=== PATIENT | female | born 1950 | race Caucasian/White ===

== ENCOUNTER 2016-06-07 08:42 | Inpatient (IN) | payer BC, MEDICARE ==
[2016-05-25 14:01] LABS: BASOPHILS 0.9 %; BASOPHILS ABSOLUTE 0.07 10/3/uL (0.0-0.16); EOSINOPHILS 1.8 %; EOSINOPHILS ABSOLUTE 0.13 10/3/uL (0.0-0.53); HEMATOCRIT 38.2 % (36.0-48.0); HEMOGLOBIN 13.4 g/dL (12.0-16.0); IMMATURE GRANULOCYTES 0.3 %; IMMATURE GRANULOCYTES ABSOLUTE 0.02 10/3/uL (0.0-0.11); LYMPHOCYTES 28.7 %; LYMPHOCYTES ABSOLUTE 2.12 10/3/uL (0.67-4.30); MANUAL DIFF NO %; MEAN CORPUS HGB CONC 35.1 g/dL (32.0-36.0); MEAN CORPUSCULAR HEMOGLOB 32.2 pg (26.0-34.0); MEAN CORPUSCULAR VOLUME 91.8 fL (80-100); MEAN PLATELET VOLUME 9.9 fL (9.2-13.0); MONOCYTES 8.5 %; MONOCYTES ABSOLUTE 0.63 10/3/uL (0.21-1.20); NEUTROPHILS 59.8 %; NEUTROPHILS ABSOLUTE 4.41 10/3/uL (2.02-8.40); PLATELET COUNT 228 10/3/uL (150-400); RBC DISTRIBUTION WIDTH 12.3 % (12.0-16.0); RED CELL COUNT 4.16 10/6/uL (4.0-5.6); WHITE BLOOD CELLS 7.4 10/3/uL (4.5-10.5)
[2016-05-25 14:13] LABS: PROTIME (NOT ORD) 12.9 SEC (12.0-14.5)
[2016-05-25 14:22] LABS: ALBUMIN 3.9 G/DL (3.5-5.0); CALCIUM, SERUM 9.6 MG/DL (8.5-10.4); CHLORIDE, SERUM 99 MMOL/L (96-112); CREATININE 1.07 MG/DL (0.55-1.02); GFR AFRICAN AMERICAN 63 ML/MIN (>=60); GFR NON AFRICAN AMERICAN 54 ML/MIN (>=60); POTASSIUM, SERUM 3.4 MMOL/L (3.5-5.3); SGOT(AST) 45 U/L (5-40); SGPT(ALT) 58 U/L (5-65); SODIUM, SERUM 141 MMOL/L (135-148); TOTAL PROTEIN 7.4 G/DL (6.0-8.5)
[2016-05-25 14:27] LABS: A/G RATIO 1.1 (0.7-1.9); ALKALINE PHOSPHATASE 88 U/L (45-117); BUN (BLOOD UREA NITROGEN) 11 MG/DL (6-23); CO2 (CARBON DIOXIDE) 32 MMOL/L (24-34); GLOBULIN 3.5 G/DL (2.5-4.1); GLUCOSE, SERUM 129 MG/DL (60-99); TOTAL BILIRUBIN 1.2 MG/DL (0-1.2)
[2016-05-25 15:29] LABS: ASCORBIC ACID (UR NOT ORDER) NEG (NEG); BILIRUBIN, URINE NEGATIVE (NEG); KETONE, URINE NEGATIVE (NEG); LEUKOCYTE ESTERASE(NOT OR NEG (NEG); WBC (NOT ORDERED) (RFLEX) < 1 (0-5)
--- NOTE | ~2016-06-07 | DS ---
Discharge Summary [facility] [address] [facility] [place]. [address] NAME: NIVIA CONNELL : 50 STATUS : DIS IN PAT#: [id number] AGE: 65 ADM/REG DATE : 06/07/16 MR#: [id number] REPORT SERV DATE: 06/18/16 DICTATED BY: ALLYSON CORTES DATE: 06/17/16 REPORT STATUS : Draft TRANSCRIBED BY: MODMahesh DATE: 06/17/16 Data Collection from hospitalization DISCHARGE DIAGNOSES: 1. Severe right hip degenerative joint disease. 2. Hypertension. 3. Diabetes. 4. Osteoarthritis. 5. Heart disease. 6. Hypercholesterolemia. 7. Former smoker. CONSULTATIONS: None. PROCEDURES PERFORMED: Uncemented total hip arthroplasty, Tri-Lock, 06/07/2016. PATHOLOGY: Bone and soft tissue, right hip joint arthroplasty - avascular necrosis. MEDICATIONS: Aspirin 81 mg daily, Zyrtec 10 mg daily, Benadryl 25 mg at bedtime as needed, Cardura 4 mg twice a day, Nexium 40 mg at bedtime, hydrochlorothiazide 25 mg daily, Glucophage 500 mg daily, Lopressor 50 mg twice a day, Singulair 10 mg daily, multivitamins one tablet daily, Lovaza 1000 mg daily, Roxicodone 5 mg every four hours as needed, Crestor 20 mg at bedtime, Ultram 50 mg every six hours as needed, and Coumadin as instructed. CONDITION AT DISCHARGE: Stable. DISPOSITION: The patient was discharged home on an 1800-calorie diabetic diet with activities as instructed. She would follow up with Andrew Rebolledo on 06/21/2016. She would follow up with Dr. Issac Cortes on 07/18/2016. She would follow up at [facility] for physical therapy on 06/13/2016, and she was to follow up at [facility] every Monday for walk-ins for Coumadin lab work. HOSPITAL COURSE: This is a 65-year-old female who has severe right hip degenerative joint disease. Treatment options were discussed and it was elected to proceed with surgical intervention. She was admitted to the hospital at this time for further evaluation and treatment. Upon admission, she was taken to the operating room where she underwent the above-mentioned procedure. She tolerated this well, and there were no complications. On postop day #1, she was evaluated by Occupational and Physical Therapy. She was comfortable. She had normal distal pulses. Her dressings were clean, dry, and intact. Over the next couple of days, she continued to progress. She was up sitting in a bedside chair. DONALD hose were in place. Discharge planning was performed. On 06/10/2016, she was ambulating in the halls. Discharge instructions were given. Due to her improved and stable condition, she was discharged home with the above-stated instructions. Information collected by: Adriana Covarrubias Discharge Summary [id number] [place]. [address] NAME: NIVIA CONNELL : 50 STATUS : DIS IN PAT#: [id number] AGE: 65 ADM/REG DATE : 06/07/16 MR#: [id number] REPORT SERV DATE: 06/18/16 DICTATED BY: ALLYSON CORTES DATE: 06/17/16 REPORT STATUS : Draft TRANSCRIBED BY: ALICIA DATE: 06/17/16 I submit the above information as my discharge summary. SUSSY/ALICIA Issac Cortes M.D. / [id number] CC: Issac Cortes M.D. [facility]
--- NOTE | ~2016-06-07 | OP ---
Record Of Operation [facility] [address] [place]. [address] NAME: NIVIA CONNELL : 50 STATUS : ADM IN PAT#: [id number] AGE: 65 ADM/REG DATE : 06/07/16 MR#: [id number] REPORT SERV DATE: 06/09/16 DICTATED BY: ALLYSON CORTES DATE: 06/09/16 REPORT STATUS : Draft TRANSCRIBED BY: MODL DATE: 06/09/16 DATE OF PROCEDURE: 06/07/2016 PREOPERATIVE DIAGNOSIS: Sever right hip degenerative joint disease. POSTOPERATIVE DIAGNOSIS: Severe right hip degenerative joint disease. PROCEDURE: Uncemented total hip arthroplasty, Tri-Lock. SIDE: Right. TANKAGE GRINDER OPERATOR: ANESTHESIA: See chart SIZE: See chart ESTIMATED BLOOD LOSS: About 100 mL INDICATIONS FOR SURGERY: PROCEDURE: The patient was taken to the operating room and placed supine on the table without incident. Anesthetic was induced per the anesthesiologist. A Rausch catheter was placed by the nurse in the standard sterile technique. The correct side for the procedure was identified by preoperative markings and matched with the consent form. All personnel in the room were in agreement regarding the procedure, patient, and side. The patient was then carefully positioned and carefully padded and prepped and draped in the normal sterile fashion. The patient received prophylactic preoperative antibiotics at the appropriate time. The preoperative x-ray was brought up on the monitor. Again, this was reviewed with the staff in the room. According with the preoperative plan, and angled, an anterolateral incision was made centered over the trochanter extending from proximal posterior to distal anterior. Electrocautery was used to maintain meticulous hemostasis. The IT band was split in line with its fibers. A Charnley retractor was placed over saline moistened laps. A standard anterolateral approach to the hip was carried out dissecting in line with the vastus medialis fibers lifting the inferior 20% of the vastus medialis, proximally the interior 20% of the gluteus medius and gluteus minimus tendons off the anterior capsule. Periosteal elevator was used to elevate soft tissue gently directly off the proximal anterior femoral bone. Appropriate retractors were carefully placed. Complete anterior capsulectomy was performed. The hip was then carefully dislocated with a combination of traction maneuver by the litigation legal assistant and scooping the ball out of the socket with a Hohmann. A femoral neck osteotomy was marked according to what had been preoperatively planned with a broach as a template. The distance for the femoral neck osteotomy was measured with a ruler. A femoral neck osteotomy was made with an oscillating saw under appropriate retraction. Meticulous hemostasis was again obtained. The leg was then brought up out of the anterior bag and Record Of Operation [facility] [address] [place]. [address] NAME: NIVIA CONNELL : 50 STATUS : ADM IN PAT#: [id number] AGE: 65 ADM/REG DATE : 06/07/16 MR#: [id number] REPORT SERV DATE: 06/09/16 DICTATED BY: ALLYSON CORTES DATE: 06/09/16 REPORT STATUS : Draft TRANSCRIBED BY: ALICIA DATE: 06/09/16 positioned with the lower extremity in external rotation and slight flexion. Acetabular retractors were placed carefully palpating to be sure that they were directly on the bone. The acetabular labrum was excised with electrocautery and rongeur. Pulvinar fat was removed with a large curette and rongeur and again meticulous hemostasis was obtained. Sequential reamers were used in the acetabulum to 1 mm. less than the final size which was chosen. This was felt to give excellent interference fit. The acetabular fossa was then copiously irrigated with pulsatile lavage and actual acetabular component was placed and impacted and checked to make sure it was down snug. The overall alignment was checked. The acetabular data entry assistant was then removed. Screws were placed in the standard fashion. A drill, depth gauge and self tapping screw placement taking care not to plunge as the drill holes were carefully placed. A trial liner was then placed and attention directed back to the proximal femur. The leg was placed back into the anterior bag. The proximal femur was prepared using a box chisel following by a T-handled reamer to determine the intramedullary alignment. This was followed by sequential broaches up to the final broach. Once it was seated in the appropriate position, a Calcar reamer was used to plane the proximal femur. Trial reduction was then done with a trial prosthetic ball and neck. A straight edge was used to compare the tip of the trochanter to center of the ball relationship to what had been noted on the preoperative x-ray. Careful reduction was then done of the total hip. Palpation was done to ascertain and compare leg lengths by palpating the nonoperative leg and also by checking soft tissue tension. The stability of the hip was checked in full extension with full external rotation and in full flexion with adduction, flexion and internal rotation. The hip was then redislocated with a bone hook. The femoral trial and femoral broach were removed. The acetabulum was then prepared under appropriate retraction by removing the trial liner. A central hole eliminator was placed and tightened. The shell was irrigated out. The actual insert was placed and impacted and then checked to be sure it was down snug with a joker. The leg was again positioned in the bag. The proximal femur exposed, irrigated and the actual thermal prosthesis was taken from the pharmacy sales representative and impacted. Once it was down, the trunnion was cleansed with a wet and dry lap and the prosthetic thermal head was placed and impacted and checked to be sure it was down snug. The acetabulum was irrigated and reduction was obtained. Again, we checked soft tissue tension, leg length and stability as described above. The hip was closed in a layered fashion with a 5 mm. Mersilene tape placed through a single drill hole in the proximal anterior/superior trochanter reattaching the gluteus medius and minimus fibers. The vastus lateralis, gluteus medius, and gluteus minimus were then closed in a sleeve. Drain was placed between the vastus and the IT band exiting distally anteriorly. The IT band was closed. Subcutaneous closure and skin closure were then obtained. A sterile dressing was applied. The patient was carefully positioned into a supine position and then awakened. The patient was then carefully transferred to the stretcher to be returned to the postoperative care unit without incident. COMPLICATION: None. SPECIMENS: Right femoral head. Record Of Operation [place] [id number] [facility] [place]. [address] NAME: NIVIA CONNELL : 50 STATUS : ADM IN [facility]#: [id number] AGE: 65 ADM/REG DATE : 06/07/16 MR#: [id number] REPORT SERV DATE: 06/09/16 DICTATED BY: ALLYSON CORTES DATE: 06/09/16 REPORT STATUS : Draft TRANSCRIBED BY: ALICIA DATE: 06/09/16 WTB/ALICIA Issac Cortes M.D. / [id number] CC: Bonita Bolton MD
[~2016-06-07 08:42] MED LIST: ASAB PO; BEN25 PO; CARDU4 PO; CRESTOR20 MG PO; EFFIENT10 PO; GLUCPH PO; HYDROCHLOROT25 MG PO; LOP50 PO; LOVAZA1 GM PO; MULTIPLE VIT PO; NEXIUM40 PO; SINGULAIR1 PO; ULTRAM50 PO; ZYRTEC ALLGY10 MG PO
[2016-06-08 04:15] LABS: HEMOGLOBIN 11.4 g/dL (12.0-16.0)
[2016-06-08 04:20] LABS: HEMATOCRIT 32.4 % (36.0-48.0)
[2016-06-08 04:21] LABS: INTERNATIONAL NORMAL RATI 1.1 UNITS (-); PROTIME (NOT ORD) 14.4 SEC (12.0-14.5)
[2016-06-08 04:31] LABS: CALCIUM, SERUM 9.1 MG/DL (8.5-10.4); CHLORIDE, SERUM 104 MMOL/L (96-112); CO2 (CARBON DIOXIDE) 31 MMOL/L (24-34); CREATININE 0.74 MG/DL (0.55-1.02); GFR AFRICAN AMERICAN 99 ML/MIN (>=60); GFR NON AFRICAN AMERICAN 85 ML/MIN (>=60); GLUCOSE, SERUM 131 MG/DL (60-99); POTASSIUM, SERUM 3.4 MMOL/L (3.5-5.3); SODIUM, SERUM 142 MMOL/L (135-148)
[2016-06-08 04:34] LABS: BUN (BLOOD UREA NITROGEN) 7 MG/DL (6-23)
[2016-06-09 06:24] LABS: INTERNATIONAL NORMAL RATI 2.8 UNITS (-); PROTIME (NOT ORD) 29.1 SEC (12.0-14.5)
[2016-06-09 06:55] LABS: HEMATOCRIT 30.7 % (36.0-48.0); HEMOGLOBIN 10.5 g/dL (12.0-16.0)
[2016-06-10 06:09] LABS: HEMATOCRIT 29.6 % (36.0-48.0); HEMOGLOBIN 10.4 g/dL (12.0-16.0)
[2016-06-10 06:19] LABS: INTERNATIONAL NORMAL RATI 2.2 UNITS (-)
[2016-06-10 06:20] LABS: PROTIME (NOT ORD) 24.1 SEC (12.0-14.5)
[2016-06-10] MEDS ORDERED: OXYCOD PO (10:59)
[2016-06-10] MEDS ORDERED: C2 (10:59)
== END 2016-06-10 12:43 | disposition home or self-care (01) | DRG 470 ==
LOC: SDC/OF 08:42 → PACU 13:15 → 3JRC 16:44
PROVIDERS: Specialist
PROC: 0SR902A Replacement of Right Hip Joint with Metal on Polyethylene Synthetic Substitute, Uncemented, Open Approach (ICD-10-PCS; principal; 2016-06-07 10:30)
DX: M16.11 Unilateral primary osteoarthritis, right hip (principal); E66.9 Obesity, unspecified; I10 Essential (primary) hypertension; Z68.33 Body mass index [BMI] 33.0-33.9, adult; E11.9 Type 2 diabetes mellitus without complications; K21.9 Gastro-esophageal reflux disease without esophagitis; E78.5 Hyperlipidemia, unspecified; Z88.2 Allergy status to sulfonamides; Z88.8 Allergy status to other drugs, medicaments and biological substances; Z91.040 Latex allergy status; Z79.82 Long term (current) use of aspirin; Z79.899 Other long term (current) drug therapy; Z79.84 Long term (current) use of oral hypoglycemic drugs; I25.10 Atherosclerotic heart disease of native coronary artery without angina pectoris; Z95.5 Presence of coronary angioplasty implant and graft
CPT/HCPCS: 36415; 71020; 72170; 80048; 80053; 81001; 82962; 85014; 85018; 85025; 85610; 86850; 86900; 86901; 87641; 88304; 88311; 93005; 97110-GP; 97116-GP; 97150-GP; 97161-GP; 97165-GO; 97535-GO; A9270-GY; C1713; C1776; J0690; J1885; J2250; J2274; J2795; J3010